=== PATIENT | female | born 1960 | race Hispanic/Latino ===

== ENCOUNTER 2017-08-09 06:25 | Day surgery (SDC) | payer MEDICAID ==
[~2017-08-09] VITALS: Ht 160 cm; Wt 81.2 kg
[~2017-08-09 06:25] MED LIST: ASPI-555 PO; ATEN50TA PO; DOCU100T PO; ESOM40CA PO; FISH1CAP27 PO; GABA-531 PO; LISI-613 PO; MELO-106 PO; SERT50TA12 PO; THIO300C PO; [UNRECOGNIZED DRUG - CODE] PO
[2017-08-09] MEDS ORDERED: SODIUM CHLORIDE 0.9% 1000ML 1,000 ML IV ONE (08:54)
[2017-08-09 08:56] VITALS: BP 145/87
[2017-08-09] MEDS ORDERED: PROPOFOL 10 MG/ML 20ML VIAL IV ONE ×3 (09:10→09:23)
[2017-08-09 09:40] VITALS: BP 173/98
[2017-08-09 10:02] VITALS: BP 110/50
== END 2017-08-09 10:51 | disposition home or self-care (01) ==
LOC: ENDO 06:25 → DAH 06:25 → ENDO 10:20
PROVIDERS: ATTEND Internal Medicine Gastroenterology
DX: D12.2 Benign neoplasm of ascending colon (principal); D12.4 Benign neoplasm of descending colon; K63.5 Polyp of colon; K62.1 Rectal polyp; K29.50 Unspecified chronic gastritis without bleeding; E55.9 Vitamin D deficiency, unspecified; K21.9 Gastro-esophageal reflux disease without esophagitis; E78.00 Pure hypercholesterolemia, unspecified; I10 Essential (primary) hypertension; F41.9 Anxiety disorder, unspecified; F32.9 Major depressive disorder, single episode, unspecified; J45.909 Unspecified asthma, uncomplicated; M19.90 Unspecified osteoarthritis, unspecified site; Z68.31 Body mass index [BMI] 31.0-31.9, adult; Z79.899 Other long term (current) drug therapy; Z90.49 Acquired absence of other specified parts of digestive tract; Z98.890 Other specified postprocedural states; Z88.0 Allergy status to penicillin; Z88.8 Allergy status to other drugs, medicaments and biological substances; E66.9 Obesity, unspecified
CPT/HCPCS: 43239; 45380; 45385; 82948; 88305; 88312; A4606; J2704 ×3; J7030